=== PATIENT | female | born 1950 | race Caucasian/White ===

== ENCOUNTER 2020-05-28 08:10 | Outpatient (REF) | payer MEDICARE, SELFPAY ==
[2020-05-28 10:22] LABS: Basophils Percent Auto 0.8 % (0-2); Eosinophils Absolute Auto 0.2 X10*3/uL (0.0-0.4); Hematocrit 38.5 % (37-47); Hemoglobin 12.6 g/dl (12.0-16.0); Imm Gran Abs Auto 0.02 X10*3/uL (0.00-0.03); Imm Gran Pct Auto 0.5 % (0.0-0.4); Lymphocytes Absolute Auto 0.7 X10*3/uL (1.2-4.9); Lymphocytes Percent Auto 18.1 % (20-40); MANUAL DIFF FLAG SCAN; Mean Corpuscular HGB Conc 32.7 g/dl (31.0-35.0); Mean Corpuscular Hemoglobin 31.3 pg (27.0-33.0); Mean Corpuscular Volume 95.5 fL (80-98); Mean Platelet Volume 10.2 fL (9.4-12.3); Monocytes Absolute Auto 0.3 X10*3/uL (0.1-1.2); Monocytes Percent Auto 7.6 % (2-11); Neutrophils Absolute Auto 2.6 X10*3/uL (2.0-8.3); Platelet Count 211 X10*3/uL (160-400); Red Blood Count 4.03 X10*6/uL (4.20-5.50); Red Cell Distribution Width 13.1 % (11.0-16.0); SCAN SMEAR FLAG 1; White Blood Count 3.8 X10*3/uL (4.8-10.8)
[2020-05-28 10:48] LABS: Estimated Average Glucose 105 mg/dL; Hemoglobin A1c % 5.3 %
[2020-05-28 10:50] LABS: Alanine Aminotransferase 15 U/L (0-31); Albumin Level 4.2 g/dL (3.5-5.0); Alkaline Phosphatase 99 U/L (39-117); Anion Gap 13 (12-20); Aspartate Amino Transferase 20 U/L (5-31); Bilirubin Total 0.6 mg/dL (0.0-1.0); Blood Urea Nitrogen 24 mg/dL (9-16); Calcium 8.8 mg/dL (8.4-10.2); Carbon Dioxide 27 mmol/L (22-29); Chloride 105 mmol/L (96-108); Cholesterol 235 mg/dL; Estimated Glomerular Filt Rate 57; Glucose Fasting 86 mg/dL (60-99); HDL Cholesterol 75 mg/dL; LDL Cholesterol Calculated 146 mg/dl; Potassium 4.3 mmol/l (3.3-5.1); Sodium 141 mmol/L (135-145); Total Protein 7.3 g/dL (6.5-8.0); Triglycerides 73 mg/dL
[2020-05-28 10:58] LABS: SLIDE REVIEW VERIFIED
[2020-05-28 11:11] LABS: TSH reflex Free T4 5.05 mIU/mL (0.32-4.0)
[2020-05-28 12:21] LABS: Free T4 (Free Thyroxine) 0.84 ng/dL (0.71-1.85)
== END 2020-05-28 08:11 | disposition home or self-care (01) ==
LOC: HO.10HDL 08:10
PROVIDERS: Visit Provider Physician Assistant
DX: E03.9 Hypothyroidism, unspecified (principal)
CPT/HCPCS: 36415; 80053; 80061; 83036; 84439; 84443; 85025

== ENCOUNTER 2020-07-15 07:55 | Outpatient (REF) | payer MEDICARE, SELFPAY ==
[2020-07-15 11:10] LABS: TSH reflex Free T4 4.26 uIU/mL (0.32-4.0)
[2020-07-15 12:13] LABS: Free T4 (Free Thyroxine) 1.04 ng/dL (0.71-1.85)
== END 2020-07-15 07:56 | disposition home or self-care (01) ==
LOC: HO.10HDL 07:55
PROVIDERS: Visit Provider Physician Assistant
DX: E03.9 Hypothyroidism, unspecified (principal)
CPT/HCPCS: 36415; 84439; 84443

== ENCOUNTER 2021-01-10 07:57 | Outpatient (REF) | payer MEDICARE, SELFPAY ==
[2021-01-10 09:34] LABS: Alanine Aminotransferase 15 U/L (0-31); Albumin Level 4.4 g/dL (3.5-5.0); Alkaline Phosphatase 95 U/L (39-117); Anion Gap 14 (12-20); Aspartate Amino Transferase 19 U/L (5-31); Bilirubin Total 0.7 mg/dL (0.0-1.0); Blood Urea Nitrogen 16 mg/dL (9-16); Calcium 9.3 mg/dL (8.4-10.2); Carbon Dioxide 26 mmol/L (22-29); Chloride 105 mmol/L (96-108); Cholesterol 260 mg/dL; Estimated Glomerular Filt Rate 52; Glucose Fasting 87 mg/dL (60-99); HDL Cholesterol 69 mg/dL; LDL Cholesterol Calculated 169 mg/dl; Potassium 4.6 mmol/L (3.3-5.1); Sodium 140 mmol/L (135-145); Total Protein 7.4 g/dL (6.5-8.0); Triglycerides 114 mg/dL
[2021-01-10 09:57] LABS: TSH reflex Free T4 11.16 uIU/mL (0.32-4.0)
[2021-01-10 10:38] LABS: Free T4 (Free Thyroxine) 0.89 ng/dL (0.71-1.85)
== END 2021-01-10 07:58 | disposition home or self-care (01) ==
LOC: HO.LAB 07:57
PROVIDERS: PCP Physician Assistant; Visit Provider Physician Assistant
DX: E03.9 Hypothyroidism, unspecified (principal); E78.9 Disorder of lipoprotein metabolism, unspecified
CPT/HCPCS: 36415; 80053; 80061; 84439; 84443

== ENCOUNTER 2021-03-01 11:01 | Outpatient (REF) | payer MEDICARE, SELFPAY ==
[2021-03-01 14:48] LABS: TSH reflex Free T4 5.07 uIU/mL (0.32-4.0)
[2021-03-01 15:28] LABS: Free T4 (Free Thyroxine) 0.92 ng/dL (0.71-1.85)
== END 2021-03-01 11:02 | disposition home or self-care (01) ==
LOC: HO.10HDL 11:01
PROVIDERS: Visit Provider Physician Assistant
DX: E03.9 Hypothyroidism, unspecified (principal)
CPT/HCPCS: 36415; 84439; 84443

== ENCOUNTER 2021-04-19 09:02 | Outpatient (REF) | payer MEDICARE, SELFPAY ==
[2021-04-19 11:48] LABS: Free T4 (Free Thyroxine) 0.91 ng/dL (0.71-1.85)
== END 2021-04-19 09:03 | disposition home or self-care (01) ==
LOC: HO.10HDL 09:02
PROVIDERS: Visit Provider Physician Assistant
DX: E03.9 Hypothyroidism, unspecified (principal)
CPT/HCPCS: 36415; 84439; 84443

== ENCOUNTER 2021-06-07 11:13 | Outpatient (REF) | payer MEDICARE, SELFPAY ==
[2021-06-07 15:28] LABS: TSH reflex Free T4 8.43 uIU/mL (0.32-4.0)
[2021-06-07 16:11] LABS: Free T4 (Free Thyroxine) 0.95 ng/dL (0.71-1.85)
== END 2021-06-07 11:14 | disposition home or self-care (01) ==
LOC: HO.10HDL 11:13
PROVIDERS: Visit Provider Physician Assistant
DX: E03.9 Hypothyroidism, unspecified (principal)
CPT/HCPCS: 36415; 84439; 84443

== ENCOUNTER 2021-08-04 07:54 | Outpatient (REF) | payer MEDICARE, SELFPAY ==
[2021-08-04 11:43] LABS: TSH reflex Free T4 13.35 uIU/mL (0.32-4.0)
[2021-08-04 12:22] LABS: Free T4 (Free Thyroxine) 0.92 ng/dL (0.71-1.85)
== END 2021-08-04 07:55 | disposition home or self-care (01) ==
LOC: HO.10HDL 07:54
PROVIDERS: Visit Provider Physician Assistant
DX: E03.9 Hypothyroidism, unspecified (principal)
CPT/HCPCS: 36415; 84439; 84443

== ENCOUNTER 2021-09-05 08:21 | Outpatient (REF) | payer MEDICARE, SELFPAY ==
[2021-09-05 11:42] LABS: TSH reflex Free T4 3.92 uIU/mL (0.32-4.0)
== END 2021-09-05 08:22 | disposition home or self-care (01) ==
LOC: HO.10HDL 08:21
PROVIDERS: Visit Provider Physician Assistant
DX: E03.9 Hypothyroidism, unspecified (principal)
CPT/HCPCS: 36415; 84443

== ENCOUNTER 2022-04-14 08:21 | Outpatient (REF) | payer MEDICARE, SELFPAY ==
[2022-04-14 10:43] LABS: Hematocrit 39.6 % (37.0-47.0); Mean Corpuscular HGB Conc 32.8 g/dl (31.0-35.0); Mean Corpuscular Hemoglobin 31.6 pg (27.0-33.0); Mean Corpuscular Volume 96.4 fL (80.0-98.0); Mean Platelet Volume 9.9 fL (9.4-12.3); Platelet Count 208 X10*3/uL (160-400); Red Blood Count 4.11 X10*6/uL (4.20-5.50); Red Cell Distribution Width 12.4 % (11.0-16.0); White Blood Count 4.3 X10*3/uL (4.8-10.8)
[2022-04-14 10:53] LABS: Alanine Aminotransferase 14 U/L (0-31); Albumin Level 4.3 g/dL (3.5-5.0); Alkaline Phosphatase 79 U/L (39-117); Anion Gap 16 (12-20); Aspartate Amino Transferase 17 U/L (5-31); Bilirubin Total 0.7 mg/dL (0.0-1.0); Blood Urea Nitrogen 16 mg/dL (9-16); Carbon Dioxide 26 mmol/L (22-29); Chloride 103 mmol/L (96-108); Cholesterol 256 mg/dL; Estimated Glomerular Filt Rate 59; Glucose Fasting 88 mg/dL (60-99); HDL Cholesterol 70 mg/dL; LDL Cholesterol Calculated 171 mg/dl; Potassium 4.6 mmol/L (3.3-5.1); Sodium 140 mmol/L (135-145); Total Protein 7.3 g/dL (6.5-8.0); Triglycerides 76 mg/dL
[2022-04-14 11:50] LABS: Free T4 (Free Thyroxine) 1.24 ng/dL (0.71-1.85)
== END 2022-04-14 08:22 | disposition home or self-care (01) ==
LOC: HO.10HDL 08:21
PROVIDERS: Visit Provider Physician Assistant
DX: E03.9 Hypothyroidism, unspecified (principal); E78.9 Disorder of lipoprotein metabolism, unspecified
CPT/HCPCS: 36415; 80053; 80061; 84439; 84443; 85027

== ENCOUNTER 2022-06-27 12:36 | Outpatient (REF) | payer MEDICARE, SELFPAY ==
[2022-06-27 15:30] LABS: TSH reflex Free T4 1.08 uIU/mL (0.32-4.0)
== END 2022-06-27 12:37 | disposition home or self-care (01) ==
LOC: HO.10HDL 12:36
PROVIDERS: Visit Provider Physician Assistant
DX: E03.9 Hypothyroidism, unspecified (principal)
CPT/HCPCS: 36415; 84443

== ENCOUNTER 2022-11-07 09:34 | Outpatient (REF) | payer MEDICARE, SELFPAY ==
[2022-11-07 10:51] LABS: Hematocrit 40.6 % (37.0-47.0); Hemoglobin 13.2 g/dl (12.0-16.0); Mean Corpuscular HGB Conc 32.5 g/dl (31.0-35.0); Mean Corpuscular Hemoglobin 30.8 pg (27.0-33.0); Mean Corpuscular Volume 94.9 fL (80.0-98.0); Mean Platelet Volume 9.8 fL (9.4-12.3); Platelet Count 186 X10*3/uL (160-400); Red Blood Count 4.28 X10*6/uL (4.20-5.50); Red Cell Distribution Width 12.6 % (11.0-16.0); White Blood Count 4.6 X10*3/uL (4.8-10.8)
[2022-11-07 11:05] LABS: Alanine Aminotransferase 14 U/L (0-31); Albumin Level 4.1 g/dL (3.5-5.0); Alkaline Phosphatase 83 U/L (39-117); Anion Gap 11 (12-20); Aspartate Amino Transferase 15 U/L (5-31); Bilirubin Total 0.6 mg/dL (0.0-1.0); Blood Urea Nitrogen 19 mg/dL (9-16); Calcium 9.4 mg/dL (8.4-10.2); Carbon Dioxide 30 mmol/L (22-29); Chloride 105 mmol/L (96-108); Cholesterol 245 mg/dL; Estimated Glomerular Filt Rate > 60; Glucose Fasting 85 mg/dL (60-99); HDL Cholesterol 68 mg/dL; LDL Cholesterol Calculated 159 mg/dl; Potassium 4.5 mmol/L (3.3-5.1); Sodium 141 mmol/L (135-145); Total Protein 7.1 g/dL (6.5-8.0); Triglycerides 91 mg/dL
[2022-11-07 11:21] LABS: TSH reflex Free T4 0.55 uIU/mL (0.32-4.0); Vitamin D 25-OH Total 33.5 ng/mL (>30)
== END 2022-11-07 09:35 | disposition home or self-care (01) ==
LOC: HO.10HDL 09:34
PROVIDERS: Visit Provider Physician Assistant
DX: E03.9 Hypothyroidism, unspecified (principal); E55.9 Vitamin D deficiency, unspecified
CPT/HCPCS: 36415; 80053; 80061; 82306; 84443; 85027

== ENCOUNTER 2023-06-13 15:02 | Outpatient (AMB) | payer MEDICARE, SELFPAY ==
[2023-06-13 15:05] VITALS: BP 140/76; PULSE 80; RESP 16; O2SAT 95; BMI 33.3
--- NOTE | 2023-06-13 15:05 | MHC.PC.OV ---
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 Accompanied by: Self / Same As Patient Allergies latex Allergy (Unknown, Verified 06/13/23 15:40) unknown penicillin V Allergy (Unknown, Verified 06/13/23 15:40) Unknown Medication List - Last Reconciled 06/13/23 by Flavio Ruiz PA-C apixaban (Eliquis) 5 mg PO Q12H 30 days cholecalciferol (vitamin D3) 25 mcg PO DAILY levothyroxine 150 mcg PO DAILY multivitamin 1 tab PO DAILY Tobacco use date assessed: 06/13/23 Fall risk assessment: No Falls in past year Last assessed Fall Risk: 06/13/23 Dental Screening Dental Screen Date: 06/13/23 Did you have a dental visit in the last 12 months?: Yes Did you have a dental problem in the last 6 months where you did not have access to dental care?: No Was dental information given to patient?: Patient has dentist HPI f/u hypothyroid HPI Details Patient is a 73-year-old female here today for follow-up visit. Patient has a past medical history significant for hypothyroidism, DVT. Her Synthroid has been increased to 125mcg.? She reports feeling well.? Most recent TSH stable, has lost weight since last office visit.? Also has had elevated cholesterol in the setting of elevated TSH.? Advised to get her fasting lipids done to assure normal. .. History endometrial malignancy: ? Has had total? hysterectomy 2018 with chemo radiation.? Also had lymph node resection in the pelvis leading to bilateral lower extremity lymphedema. 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 Unfortunately her last year and she stopped attending medical appointments. Has been somewhat melancholy. We have noted weight gain since last office visit. She does report having more swelling in her legs into the upper thighs.. She has done lymphedema massage in wrappings in the past that were helpful and is considering doing this again. She does report she is concerned about being able to manage her activities of daily living if she is being wrapped for an lymphedema. Laboratory Tests 04/14/22 11/07/22 08:40 09:37 RBC 4.28 TSH 8.00 H 0.55 PFSH Surgical History History of surgery History of drainage of abscess History of removal of Port-a-Cath History of cardioversion History of thyroid nodule History of laparoscopy-assisted vaginal hysterectomy History of D&C Family History Father Heart failure Prostate cancer Mother Lung cancer Sister Lung cancer Sister Brain tumor Brother Pancreatic cancer Social History Housing: Apartment Alcohol intake: never Patient Tobacco Use Status: Never used Tobacco e-Cigarette/Vaping Use: Never Used Second Hand Smoke Exposure: No service: No Current occupational status: retired Cognitive needs: No Hearing needs: No Vision needs: Yes (glasses for driving ) Questionnaire PHQ-9 Over the last 2 weeks, how often have you been bothered by any of the following problems? 1. Little interest or pleasure in doing things: not at all 2. Feeling down, depressed, or hopeless: not at all 3. Trouble falling or staying asleep, or sleeping too much: not at all 4. Feeling tired or having little energy: not at all 5. Poor appetite or overeating: not at all 6. Feeling bad about yourself - or that you are a failure or have let yourself or your family down: not at all 7. Trouble concentrating on things, such as reading the newspaper or watching television: not at all 8. Moving or speaking so slowly that other people could have noticed. Or the opposite - being so fidgety or restless that you have been moving around a lot more than usual: not at all 9. Thoughts that you would be better off or of hurting yourself in some way: not at all Total score: 0 Depression Screening Interpretation: Negative Depression Screening Done: Yes 32491 - PHQ-9 Billing: Yes Source: Developed by Drs. Gualberto Pascual, Emerita Wu, Bob Forte and colleagues, with an educational tevin from [employer] Thrive Questionnaire Date Thrive assessed: 06/13/23 I am a: Patient What is your living situation today?: I have a steady place to live Within the past 12 months, did the food you bought not last and you didn't have the money to get more?: Never true Within the past 12 months, did you worry whether your food would run out before you got money to buy more?: Never true Do you have trouble paying for medicines?: No Do you have trouble getting transportation to medical appointments?: No Do you have trouble paying your heating and electricity bill?: No Do you have trouble taking care of your child, family member or friend?: No Do you have trouble with day-to-day activities such as bathing, preparing meals, shopping, managing finances, etc.?: No Are you currently unemployed and looking for a job?: No Are you interested in more education?: No Please select the resources that you would like help with: None Currently or been in a relationship where the following occur: no concerns reported AUDIT C Alcohol Use Questionnaire (AUDIT-C) 1. How often do you have a drink containing alcohol?: Never Total Score: 0 DAVID-7 AMB Questionnaire DAVID-7 Date DAVID - 7 assessed: 06/13/23 Feeling nervous, anxious, or on edge: 0 = Not at all Not being able to stop or control worryin = Not at all Worrying too much about different things: 0 = Not at all Trouble relaxin = Not at all Being so restless that it is hard to sit still: 0 = Not at all Becoming easily annoyed or irritable: 0 = Not at all Feeling afraid as if something awful might happen: 0 = Not at all Total DAVID-7 score (0-4 normal; 5-9 mild; 10-14 moderate; 15-21 severe): 0 Source: Developed by Drs. Gualberto Pascual, Emerita Wu, Bob Forte and colleagues, with an educational tevin from [employer] DAVID-7 Assessment Billing DAVID-7 Assessment Tool: DAVID-7 Assessment 09645 Review of Systems Const Denies headache(s) Eyes Denies loss of vision ENT Denies vertigo, Denies dizziness, Denies headache(s) and Denies sore throat Card Denies chest pain, Denies leg edema and Denies lightheadedness Resp Denies cough, Denies hemoptysis and Denies wheezing GI Denies abdominal pain, Denies melena, Denies constipation, Denies diarrhea and Denies vomiting Denies urinary frequency, Denies dysuria and Denies urinary urgency Musc Denies arthralgias, Denies joint swelling, Denies numbness and Denies tingling Neuro Denies Abnormal speech present, Denies behavioral changes, Denies vertigo, Denies dizziness, Denies headache(s), Denies loss of vision, Denies memory loss, Denies numbness and Denies tingling Psych Denies anxiety, Denies behavioral changes, Denies depression, Denies memory loss and Denies panic attacks Neo/Lymph Denies easy bleeding and Denies easy bruising Aller/Immun Denies wheezing Physical exam (Primary Care) Vital Signs: Last Vital Signs Pulse 80 06/13/23 15:05 Resp 16 06/13/23 15:05 BP 140/76 H 06/13/23 15:05 Pulse Ox 95 06/13/23 15:05 Oxygen Delivery Method Room Air 06/13/23 15:05 BMI result Body Mass Index 33.3 Tobacco/Smoking Status: Tobacco use Status Tobacco use date assessed 06/13/23 06/13/23 15:08 Patient Tobacco Use Status Never used Tobacco 06/13/23 15:06 e-Cigarette/Vaping Use Never Used 06/13/23 15:06 PHQ-9: PHQ-9 Score PHQ-9: Total score 0 06/13/23 15:44 Depression Screening Interpretation: Negative Thrive Assessment: Date of Thrive Assessment Date Thrive assessed 06/13/23 06/13/23 15:08 Currently or been in a relationship where the following occur: no concerns reported Const General: healthy appearing, no acute distress, alert and awake Nutritional Appearance: well nourished Orientation/consciousness: oriented to person, oriented to place and oriented to time HENMT Ears: TM's normal bilaterally General nose exam: Normal nasal mucous membranes and turbinates present Eyes Conjunctivae: conjunctivae normal Sclerae: sclerae normal Pupils: Equal, round and reactive pupils present Neck Neck: Yes no lymphadenopathy and Yes no JVD Thyroid: Thyroid normal Carotids: no bruits Resp Effort & Inspection: normal respiratory effort and not tachypneic Auscultation: no crackles, no rales, no rhonchi and no wheezes Cardio Rate: regular rate Rhythm: regular rhythm Heart sounds: no murmurs and normal S1 and S2 GI Palpation (GI): Soft to palpation, nontender, no hepatomegaly and no splenomegaly Auscultation: normal bowel sounds Skin General skin exam: no rashes or lesions noted and dry skin Neuro General: oriented to person, oriented to place and oriented to time Cranial nerves: Yes Equal, round and reactive pupils present Speech: No Abnormal speech present Gait exam (Neuro): Normal gait present Motor exam (neuro): no tremor noted Extrem Other: 3+ PITTING EDEMA TO THE LEVEL OF MID THIGH. SKIN WEEPING CLEAR FLUID, FLAKY AND ERYTHEMATOUS. Right upper extremity: full ROM Left upper extremity: full ROM Right lower extremity: full ROM and edema Left lower extremity: full ROM and edema Psych Mental Status: mental status grossly normal Speech and movement: Normal speech and movement present Affect: normal affect Attitude: cooperative Thought process: Normal thought process present Assessment and Plan Assessment & Plan (1) Lymphedema: Code(s): I89.0 - Lymphedema, not elsewhere classified Plan: CONTINUES TO HAVE PRETTY SEVERE BILATERAL LOWER EXTREMITY LYMPHEDEMA. 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 SHE WILL LIKELY BENEFIT FROM LYMPHEDEMA WRAPPINGS AND MASSAGE AND PATIENT DOES AGREE AND UNDERSTAND. SHE WOULD LIKE TO HOLD OFF ON SEEING OCCUPATIONAL THERAPY FOR THE WRAPPINGS FOR NOW SHE HAS BEEN HAVING DIFFICULTIES WITH HOME OWNERSHIP SINCE HER . (2) Cellulitis: Code(s): L03.90 - Cellulitis, unspecified Qualifiers: Laterality: unspecified laterality Site of cellulitis: extremity Site of cellulitis of extremity: lower extremity Qualified Code(s): L03.119 - Cellulitis of unspecified part of limb Plan: LOWER EXTREMITIES DO APPEAR TO BE WE BEING AND ERYTHEMATOUS. WILL SUPPLY PATIENT WITH DOXYCYCLINE FOR THE POSSIBILITY OF CELLULITIS. (3) Hypothyroidism: Code(s): E03.9 - Hypothyroidism, unspecified Qualifiers: Hypothyroidism type: acquired Qualified Code(s): E03.9 - Hypothyroidism, unspecified Plan: Patient's most recent TSH stable, will continue current dose of levothyroxine. (4) DVT (deep venous thrombosis): Code(s): I82.409 - Acute embolism and thrombosis of unspecified deep veins of unspecified lower extremity Qualifiers: Affected thrombotic vein of extremity: popliteal Chronicity: chronic DVT location: lower extremity Laterality: bilateral Qualified Code(s): I82.533 - Chronic embolism and thrombosis of popliteal vein, bilateral Plan: Patient continues on anticoagulation without any overt signs of bleeding. (5) Obese: Code(s): E66.9 - Obesity, unspecified Qualifiers: Body mass index: BMI 31.0-31.9 Obesity classification: adult class 1 (BMI 30 - 34.9) Obesity type: due to excess calories Serious obesity comorbidity presence: without serious comorbidity Qualified Code(s): E66.09 - Other obesity due to excess calories; Z68.31 - Body mass index [BMI] 31.0-31.9, adult Plan: Patient does understand her BMI is over 30 continues to work on being more physically active and adapting to better eating habits to reduce (6) Borderline high cholesterol: Code(s): E78.9 - Disorder of lipoprotein metabolism, unspecified Plan: Patient's most recent lipid panel showing elevated total cholesterol. Will work on lifestyle modifications to reduce her high cholesterol foods in her diet. Goal LDL to be below 160 Orders: Orders Lipid Panel 06/13/23 E78.9 - Disorder of lipoprotein metabolism, unspecified TSH reflex Free T4 06/13/23 E03.9 - Hypothyroidism, unspecified Comprehensive [place]. Panel Fast 06/13/23 Z13.1 - Encounter for screening for diabetes mellitus Medications: New doxycycline monohydrate 100 mg PO BID 10 days 20 caps 0RF L03.119 - Cellulitis of unspecified part of limb Coding Level of Care Code Est Pt Level 4 (08495) Diagnoses Lymphedema I89.0 Cellulitis of lower extremity, unspecified laterality L03.119 Laterality: unspecified laterality Site of cellulitis: extremity Site of cellulitis of extremity: lower extremity Acquired hypothyroidism E03.9 Hypothyroidism type: acquired Chronic deep vein thrombosis (DVT) of popliteal vein of both lower extremities I82.533 Affected thrombotic vein of extremity: popliteal Chronicity: chronic DVT location: lower extremity Laterality: bilateral Class 1 obesity due to excess calories without serious comorbidity with body mass index (BMI) of 31.0 to 31.9 in adult E66.09; Z68.31 Body mass index: BMI 31.0-31.9 Obesity classification: adult class 1 (BMI 30 - 34.9) Obesity type: due to excess calories Serious obesity comorbidity presence: without serious comorbidity Borderline high cholesterol E78.9 Additional Codes DAVID-7 Assessment Billing - DAVID-7 Assessment Tool: DAVID-7 Assessment [id number] ([id number])
== END 2023-06-13 16:10 | disposition home or self-care (01) ==
PROVIDERS: Visit Provider Physician Assistant
DX: I89.0 Lymphedema, not elsewhere classified (principal); L03.119 Cellulitis of unspecified part of limb; E03.9 Hypothyroidism, unspecified; I82.533 Chronic embolism and thrombosis of popliteal vein, bilateral; E66.09 Other obesity due to excess calories; Z68.31 Body mass index [BMI] 31.0-31.9, adult; E78.9 Disorder of lipoprotein metabolism, unspecified
CPT/HCPCS: 99214

== ENCOUNTER 2023-06-14 08:12 | Outpatient (REF) | payer MEDICARE, SELFPAY | END 2023-06-14 08:13 | disposition home or self-care (01) | LOC: HO.10HDL 08:12 | PROVIDERS: Visit Provider Physician Assistant | DX: Z13.1 Encounter for screening for diabetes mellitus (principal); E03.9 Hypothyroidism, unspecified; E78.9 Disorder of lipoprotein metabolism, unspecified | CPT/HCPCS: 36415; 80053; 80061; 84443 ==

== ENCOUNTER 2023-08-07 12:36 | Outpatient (RCR) | payer MEDICARE, SELFPAY | END 2023-09-17 12:07 | disposition home or self-care (01) | LOC: HO.WCC 12:36 | PROVIDERS: PCP Physician Assistant; Visit Provider Physician Assistant | DX: L97.821 Non-pressure chronic ulcer of other part of left lower leg limited to breakdown of skin (principal); I89.0 Lymphedema, not elsewhere classified; G62.9 Polyneuropathy, unspecified; Z86.718 Personal history of other venous thrombosis and embolism; Z87.891 Personal history of nicotine dependence; Z92.21 Personal history of antineoplastic chemotherapy; Z92.3 Personal history of irradiation | CPT/HCPCS: 97597; 99212; 99214 ==

== ENCOUNTER 2023-10-15 10:37 | Outpatient (AMB) | payer MEDICARE, SELFPAY ==
[2023-10-15 10:39] VITALS: BP 142/80; PULSE 74; O2SAT 98; BMI 33.9
--- NOTE | 2023-10-15 10:39 | A.OFFPC_ITS ---
Vital Signs 10/15/23 10:39 Height 5 ft 8 in Weight 223 lb BMI 33.9 BP 142/80 H Blood Pressure Location Lt brachial Position Sitting Pulse 74 Pulse Source Pulse Oximeter Pulse Oximetry (%) 98 Oxygen Delivery Method Room Air Intake Visit Reasons: f/u Lymphedema/ hypothyroid. 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 HPI Details Patient is a 73-year-old female here today for follow-up visit. Patient has a past medical history significant for hypothyroidism, DVT. Hypothyroidism: Her Synthroid has been increased to 125mcg.? She reports feeling well.? Most recent TSH stable. .. History endometrial malignancy/ lymphedema: ? Has had total? hysterectomy 2018 with chemo radiation.? Also had lymph node resection in the pelvis leading to bilateral lower extremity lymphedema. 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 Unfortunately her last year and she stopped attending medical appointments. Has been somewhat melancholy. We have noted weight gain since last office visit. She does report having more swelling in her legs into the upper thighs.. She has done lymphedema massage in wrappings in the past that were helpful and is considering doing this again. She does report she is concerned about being able to manage her activities of daily living if she is being wrapped for an lymphedema. .. Borderline high cholesterol: Most recent lipid panel showing borderline cholesterol. He has not interested in any medication at this time for c holesterol. She will work extensively on lifestyle and dietary modifications to reduce her cholesterol. Laboratory Tests 11/07/22 06/14/23 09:37 08:20 Creatinine 0.89 Cholesterol 245 232 H LDL Cholesterol, C alc 147 H TSH 1.26 PFSH Surgical History History of surgery History of drainage of abscess History of removal of Port-a-Cath History of cardioversion History of thyroid nodule History of laparoscopy-assisted vaginal hysterectomy History of D&C Family History Father Heart failure Prostate cancer Mother Lung cancer Sister Lung cancer Sister Brain tumor Brother Pancreatic cancer Social History Housing: Apartment Alcohol intake: never Patient Tobacco Use Status: Never used Tobacco e-Cigarette/Vaping Use: Never Used Second Hand Smoke Exposure: No service: No Current occupational status: retired Cognitive needs: No Hearing needs: No Vision needs: Yes (glasses for driving ) Questionnaire PHQ-9 Over the last 2 weeks, how often have you been bothered by any of the following problems? Depression Screening Interpretation: Negative Depression Screening Done: Yes Source: Developed by Drs. Gualberto Pascual, Emerita Wu, Bob Forte and colleagues, with an educational tevin from [employer]. Thrive Questionnaire Date Thrive assessed: 06/13/23 Currently or been in a relationship where the following occur: no concerns reported THRIVE Score: 0 DAVID-7 AMB Questionnaire DAVID-7 Date DAVID - 7 assessed: 06/13/23 Source: Developed by Drs. Gualberto Pascual, Emerita Wu, Bob Forte and colleagues, with an educational tevin from [employer]. Review of Systems Const Denies headache(s) Eyes Denies loss of vision ENT Denies vertigo, Denies dizziness, Denies headache(s) and Denies sore throat Card Denies chest pain, Denies leg edema and Denies lightheadedness Resp Denies cough, Denies hemoptysis and Denies wheezing GI Denies abdominal pain, Denies melena, Denies constipation, Denies diarrhea and Denies vomiting Denies urinary frequency, Denies dysuria and Denies urinary urgency Musc Denies arthralgias, Denies joint swelling, Denies numbness and Denies tingling Neuro Denies Abnormal speech present, Denies behavioral changes, Denies vertigo, Denies dizziness, Denies headache(s), Denies loss of vision, Denies memory loss, Denies numbness and Denies tingling Psych Denies anxiety, Denies behavioral changes, Denies depression, Denies memory loss and Denies panic attacks Neo/Lymph Denies easy bleeding and Denies easy bruising Aller/Immun Denies wheezing Physical exam (Primary Care) Vital Signs: Last Vital Signs Pulse 74 10/15/23 10:39 BP 142/80 H 10/15/23 10:39 Pulse Ox 98 10/15/23 10:39 Oxygen Delivery Method Room Air 10/15/23 10:39 BMI result Body Mass Index 33.9 Tobacco/Smoking Status: Tobacco use Status Tobacco use date assessed 06/13/23 10/15/23 10:44 Patient Tobacco Use Status Never used Tobacco 10/15/23 10:44 e-Cigarette/Vaping Use Never Used 10/15/23 10:44 Depression Screening Interpretation: Negative Thrive Assessment: Date of Thrive Assessment Date Thrive assessed 06/13/23 10/15/23 10:44 Currently or been in a relationship where the following occur: no concerns reported Const General: healthy appearing, no acute distress, alert and awake Nutritional Appearance: well nourished Orientation/consciousness: oriented to person, oriented to place and oriented to time HENMT Ears: TM's normal bilaterally General nose exam: Normal nasal mucous membranes and turbinates present Eyes Conjunctivae: conjunctivae normal Sclerae: sclerae normal Pupils: Equal, round and reactive pupils present Neck Neck: Yes no lymphadenopathy and Yes no JVD Thyroid: Thyroid normal Carotids: no bruits Resp Effort & Inspection: normal respiratory effort and not tachypneic Auscultation: no crackles, no rales, no rhonchi and no wheezes Cardio Rate: regular rate Rhythm: regular rhythm Heart sounds: no murmurs and normal S1 and S2 GI Palpation (GI): Soft to palpation, nontender, no hepatomegaly and no splenomegaly Auscultation: normal bowel sounds Skin General skin exam: no rashes or lesions noted and dry skin Neuro General: oriented to person, oriented to place and oriented to time Cranial nerves: Yes Equal, round and reactive pupils present Speech: No Abnormal speech present Gait exam (Neuro): Normal gait present Motor exam (neuro): no tremor noted Extrem Other: 3+ PITTING EDEMA TO THE LEVEL OF MID THIGH. SKIN WEEPING CLEAR FLUID, FLAKY AND ERYTHEMATOUS. Right upper extremity: full ROM Left upper extremity: full ROM Right lower extremity: full ROM and edema Left lower extremity: full ROM and edema Psych Mental Status: mental status grossly normal Speech and movement: Normal speech and movement present Affect: normal affect Attitude: cooperative Thought process: Normal thought process present Assessment and Plan Assessment & Plan (1) Lymphedema: Code(s): I89.0 - Lymphedema, not elsewhere classified Plan: CONTINUES TO HAVE PRETTY SEVERE BILATERAL LOWER EXTREMITY LYMPHEDEMA. 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 HAS BEEN DOING LYMPHEDEMA WRAPPINGS WHICH HAVE BEEN SOMEWHAT EFFECTIVE. DIURETICS HAVE NOT BEEN EFFECTIVE. (2) Hypothyroidism: Code(s): E03.9 - Hypothyroidism, unspecified Qualifiers: Hypothyroidism type: acquired Qualified Code(s): E03.9 - Hypothyroidism, unspecified Plan: Patient's most recent TSH stable, will continue current dose of levothyroxine. (3) DVT (deep venous thrombosis): Code(s): I82.409 - Acute embolism and thrombosis of unspecified deep veins of unspecified lower extremity Qualifiers: Affected thrombotic vein of extremity: popliteal Chronicity: chronic DVT location: lower extremity Laterality: bilateral Qualified Code(s): I82.533 - Chronic embolism and thrombosis of popliteal vein, bilateral Plan: Patient continues on anticoagulation without any overt signs of bleeding. (4) Borderline high cholesterol: Code(s): E78.9 - Disorder of lipoprotein metabolism, unspecified Plan: Patient's most recent lipid panel showing elevated total cholesterol. Will work on lifestyle modifications to reduce her high cholesterol foods in her diet. Goal LDL to be below 160 (5) Venous ulcer of ankle: Code(s): I83.003 - Varicose veins of unspecified lower extremity with ulcer of ankle; L97.309 - Non-pressure chronic ulcer of unspecified ankle with unspecified severity Qualifiers: Varicose vein presence: without varicose veins Laterality: left Non- pressure ulcer stage: limited to breakdown of skin Qualified Code(s): I87.2 - Venous insufficiency (chronic) (peripheral); L97.321 - Non-pressure chronic ulcer of left ankle limited to breakdown of skin Plan: Has seen wound management received treatment, Has resolved Orders: Orders TSH reflex Free T4 Today E03.9 - Hypothyroidism, unspecified Comprehensive [place]. Panel Fast Today E78.9 - Disorder of lipoprotein metabolism, unspecified Lipid Panel Today E78.9 - Disorder of lipoprotein metabolism, unspecified Patient Instructions: Goal: LDL below 160 Barriers: Adherence to physical activity and healthy eating habits Coding Level of Care Code Est Pt Level 4 (09372) Diagnoses Lymphedema I89.0 Acquired hypothyroidism E03.9 Hypothyroidism type: acquired Chronic deep vein thrombosis (DVT) of popliteal vein of both lower extremities I82.533 Affected thrombotic vein of extremity: popliteal Chronicity: chronic DVT location: lower extremity Laterality: bilateral Borderline high cholesterol E78.9 Venous stasis ulcer of left ankle limited to breakdown of skin without varicose veins I87.2; L97.321 Varicose vein presence: without varicose veins Laterality: left Non-pressure ulcer stage: limited to breakdown of skin
== END 2023-10-15 11:16 | disposition home or self-care (01) ==
PROVIDERS: PCP Physician Assistant; Visit Provider Physician Assistant
DX: I89.0 Lymphedema, not elsewhere classified (principal); I82.533 Chronic embolism and thrombosis of popliteal vein, bilateral; L97.321 Non-pressure chronic ulcer of left ankle limited to breakdown of skin; E03.9 Hypothyroidism, unspecified; E78.9 Disorder of lipoprotein metabolism, unspecified; I87.2 Venous insufficiency (chronic) (peripheral)
CPT/HCPCS: 99214

== ENCOUNTER 2024-01-16 15:41 | Outpatient (REF) | payer MEDICARE, SELFPAY ==
[2024-01-16 16:45] LABS: Alanine Aminotransferase 20 U/L (0-31); Albumin Level 4.3 g/dL (3.5-5.0); Alkaline Phosphatase 80 U/L (39-117); Anion Gap 12 (12-20); Aspartate Amino Transferase 17 U/L (5-31); Bilirubin Total 0.4 mg/dL (0.0-1.0); Blood Urea Nitrogen 16 mg/dL (9-16); Calcium 9.8 mg/dL (8.4-10.2); Carbon Dioxide 27 mmol/L (22-29); Chloride 103 mmol/L (96-108); Cholesterol 241 mg/dL (<200); Estimated Glomerular Filt Rate > 60; Glucose Fasting 92 mg/dL (60-99); HDL Cholesterol 63 mg/dL (>40); LDL Cholesterol Calculated 149 mg/dL (<100); Potassium 4.4 mmol/L (3.3-5.1); Sodium 138 mmol/L (135-145); Total Protein 7.7 g/dL (6.5-8.0); Triglycerides 146 mg/dL (<150)
[2024-01-16 17:12] LABS: Appearance Urine Cloudy; Color Urine Yellow; Glucose Urine UA Negative (Negative); Leukocyte Esterase Urine Large (3+) (Negative); Nitrite Urine Negative (Negative); PH 5.5 (5.0-9.0); UMIC TRIGGER UACC YES; Urine Blood Negative (Negative); Urine Ketones Negative (Negative); Urine Protein Negative (Neg-Trace)
[2024-01-16 17:15] LABS: Bacteria Urine 4+ (None Seen); Hyaline Casts Urine 0-2 /LPF (0-2); RBC Urine 0-2 /HPF (0-2); UACC Culture Trigger YES; WBC Urine >50 /HPF (0-5)
== END 2024-01-16 15:42 | disposition home or self-care (01) ==
LOC: HO.LAB 15:41
PROVIDERS: PCP Physician Assistant; Visit Provider Physician Assistant
DX: E03.9 Hypothyroidism, unspecified (principal); E78.9 Disorder of lipoprotein metabolism, unspecified; R35.0 Frequency of micturition
CPT/HCPCS: 36415; 80053; 80061; 81001; 84443; 87086; 87088; 87186

== ENCOUNTER 2024-02-18 09:47 | Outpatient (AMB) | payer MEDICARE, SELFPAY ==
[2024-02-18 09:58] VITALS: BP 120/72; PULSE 6; RESP 15; O2SAT 98; BMI 34.2
--- NOTE | 2024-02-18 09:58 | A.OFFPC_ITS ---
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 Required: No Accompanied by: Self / Same As Patient Allergies latex Allergy (Unknown, Verified 02/18/24 10:22) unknown penicillin V Allergy (Unknown, Verified 02/18/24 10:22) Unknown Medication List - Last Reconciled 02/18/24 by Flavio Ruiz PA-C apixaban (Eliquis) 5 mg PO Q12H 30 days cholecalciferol (vitamin D3) 25 mcg PO DAILY levothyroxine 150 mcg PO DAILY multivitamin 1 tab PO DAILY nitrofurantoin monohyd/m-cryst 100 mg (Macrobid) 100 mg PO Q12H 5 days Tobacco use date assessed: 06/13/23 Dental Screening Dental Screen Date: 06/13/23 HPI f/u Hypothyroid/ HLD HPI Details Patient is a 73-year-old female here today for follow-up visit. Patient has a past medical history significant for hypothyroidism, DVT. Hypothyroidism: Her Synthroid has been increased to 150mcg.? She reports feeling well.? Most recent TSH stable. .. History endometrial malignancy/ lymphedema: ? Has had total? hysterectomy 2018 with chemo radiation.? Also had lymph node resection in the pelvis leading to bilateral lower extremity lymphedema. 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 Unfortunately her last year and she stopped attending medical appointments. Has been somewhat melancholy. We have noted weight gain since last office visit. She does report having more swelling in her legs into the upper thighs.. She has done lymphedema massage in wrappings in the past that were helpful and is considering doing this again. She does report she is concerned about being able to manage her activities of daily living if she is being wrapped for an lymphedema. .. Borderline high cholesterol: Most recent lipid panel showing elevated cholesterol. He has not interested in any medication at this time for cholesterol. She will work extensively on lifestyle and dietary modifications to reduce her cholesterol. Laboratory Tests 06/14/23 01/16/24 08:20 15:59 Fasting Glucose 92 Cholesterol 232 H 241 H TSH 1.26 0.70 PFSH Surgical History History of surgery History of drainage of abscess History of removal of Port-a-Cath History of cardioversion History of thyroid nodule History of laparoscopy-assisted vaginal hysterectomy History of D&C Family History Father Heart failure Prostate cancer Mother Lung cancer Sister Lung cancer Sister Brain tumor Brother Pancreatic cancer Social History Housing: Apartment Alcohol intake: never Patient Tobacco Use Status: Never used Tobacco e-Cigarette/Vaping Use: Never Used Second Hand Smoke Exposure: No service: No Current occupational status: retired Cognitive needs: No Hearing needs: No Vision needs: Yes (glasses for driving ) Questionnaire Thrive Questionnaire Date Thrive assessed: 06/13/23 DAVID-7 AMB Questionnaire DAVID-7 Date DAVID - 7 assessed: 06/13/23 Source: Developed by Drs. Gualberto Pascual, Emerita Wu, Bob Forte and colleagues, with an educational tevin from [employer]. Review of Systems Const Denies headache(s) Eyes Denies loss of vision ENT Denies vertigo, Denies dizziness, Denies headache(s) and Denies sore throat Card Denies chest pain, Denies leg edema and Denies lightheadedness Resp Denies cough, Denies hemoptysis and Denies wheezing GI Denies abdominal pain, Denies melena, Denies constipation, Denies diarrhea and Denies vomiting Denies urinary frequency, Denies dysuria and Denies urinary urgency Musc Denies arthralgias, Denies joint swelling, Denies numbness and Denies tingling Neuro Denies Abnormal speech present, Denies behavioral changes, Denies vertigo, Denies dizziness, Denies headache(s), Denies loss of vision, Denies memory loss, Denies numbness and Denies tingling Psych Denies anxiety, Denies behavioral changes, Denies depression, Denies memory loss and Denies panic attacks Neo/Lymph Denies easy bleeding and Denies easy bruising Aller/Immun Denies wheezing Physical exam (Primary Care) Vital Signs: Last Vital Signs Pulse 6 L 02/18/24 09:58 Resp 15 02/18/24 09:58 BP 120/72 02/18/24 09:58 Pulse Ox 98 02/18/24 09:58 Oxygen Delivery Method Room Air 02/18/24 09:58 BMI result Body Mass Index 34.2 Tobacco/Smoking Status: Tobacco use Status Tobacco use date assessed 06/13/23 02/18/24 09:58 Patient Tobacco Use Status Never used Tobacco 02/18/24 09:58 e-Cigarette/Vaping Use Never Used 02/18/24 09:58 Thrive Assessment: Date of Thrive Assessment Date Thrive assessed 06/13/23 02/18/24 09:58 Const General: healthy appearing, no acute distress, alert and awake Nutritional Appearance: well nourished Orientation/consciousness: oriented to person, oriented to place and oriented to time HENMT Ears: TM's normal bilaterally General nose exam: Normal nasal mucous membranes and turbinates present Eyes Conjunctivae: conjunctivae normal Sclerae: sclerae normal Pupils: Equal, round and reactive pupils present Neck Neck: Yes no lymphadenopathy and Yes no JVD Thyroid: Thyroid normal Carotids: no bruits Resp Effort & Inspection: normal respiratory effort and not tachypneic Auscultation: no crackles, no rales, no rhonchi and no wheezes Cardio Rate: regular rate Rhythm: regular rhythm Heart sounds: no murmurs and normal S1 and S2 GI Palpation (GI): Soft to palpation, nontender, no hepatomegaly and no splenomegaly Auscultation: normal bowel sounds Skin General skin exam: no rashes or lesions noted and dry skin Neuro General: oriented to person, oriented to place and oriented to time Cranial nerves: Yes Equal, round and reactive pupils present Speech: No Abnormal speech present Gait exam (Neuro): Normal gait present Motor exam (neuro): no tremor noted Extrem Other: SIGNIFICANT BILATERAL LOWER EXTREMITY LYMPHEDEMA WITH HYPERPIGMENTED SKIN CHANGES NOTED. SMALL OPEN AREA LEFT LOWER EXTREMITY. NO NOTABLE SURROUND CELLULITIS Right upper extremity: full ROM Left upper extremity: full ROM Right lower extremity: full ROM and edema Left lower extremity: full ROM and edema Psych Mental Status: mental status grossly normal Speech and movement: Normal speech and movement present Affect: normal affect Attitude: cooperative Thought process: Normal thought process present Assessment and Plan Assessment & Plan (1) Hypothyroidism: Code(s): E03.9 - Hypothyroidism, unspecified Qualifiers: Hypothyroidism type: acquired Qualified Code(s): E03.9 - Hypoth yroidism, unspecified Plan: Patient's most recent TSH stable, will continue current dose of levothyroxine. (2) Lymphedema: Code(s): I89.0 - Lymphedema, not elsewhere classified Plan: CONTINUES TO HAVE PRETTY SEVERE BILATERAL LOWER EXTREMITY LYMPHEDEMA. THIS WAS SECONDARY TO RESIDENT SERVICES DIRECTOR SURGERY SECONDARY TO RESIDENT SERVICES DIRECTOR CANCER. HAS BEEN DOING LYMPHEDEMA WRAPPINGS WHICH HAVE BEEN SOMEWHAT EFFECTIVE. DIURETICS HAVE NOT BEEN EFFECTIVE. (3) HLD (hyperlipidemia): Code(s): E78.5 - Hyperlipidemia, unspecified Qualifiers: Hyperlipidemia type: mixed hyperlipidemia Qualified Code(s): E78.2 - Mixed hyperlipidemia Plan: Most recent lipid panel showing elevated total cholesterol. She is not interested in cholesterol medication at this time will continue working on lifestyle and dietary modifications. Goal LDL to be below 160 Orders: Orders Lipid Panel Today E78.2 - Mixed hyperlipidemia TSH reflex Free T4 Today E03.9 - Hypothyroidism, unspecified Comprehensive Hessel. Panel Fast Today E78.2 - Mixed hyperlipidemia Complete Blood Count no Diff Today E78.2 - Mixed hyperlipidemia Patient Instructions: Goal: LDL to remain below 160 Barrier: Adherence to physical activity and healthy eating habits Coding Level of Care Code Est Pt Level 4 (86239) Diagnoses Acquired hypothyroidism E03.9 Hypothyroidism type: acquired Lymphedema I89.0 Mixed hyperlipidemia E78.2 Hyperlipidemia type: mixed hyperlipidemia
== END 2024-02-18 10:49 | disposition home or self-care (01) ==
PROVIDERS: PCP Physician Assistant; Visit Provider Physician Assistant
DX: E03.9 Hypothyroidism, unspecified (principal); I89.0 Lymphedema, not elsewhere classified; E78.2 Mixed hyperlipidemia
CPT/HCPCS: 99214

== ENCOUNTER 2024-08-11 08:22 | Outpatient (REF) | payer MEDICARE, SELFPAY ==
--- OUTSIDE RECORDS SUMMARY | 2024-08-11 08:42 | XMS_ITS | Patient Health Record ---
[facility] Address [address] [place] [address] Care Team Providers Care Cross Country Coach Name Role Phone Flavio Ruiz Primary Care Provider Rachael Feliciano Unavailable [phone] Allergies Allergen (clinical drug ingredient) Drug/Non Drug Allergy documented on EMR Reaction Allergy Type Onset Date Status seasonal trees (uncoded) Unknown Allergy Active Poison Cecy Treatment Unknown Drug Allergy Active Latex Latex Unknown Allergy Active Penicillin Unknown Drug Allergy Active Reason For Referral No Information Medications Medication SIG (Take, Route, Fr equency, [...] Negative Encounters Encounter Location Date Provider Diagnosis [facility] [address] [place] [address] 04/30/2024 Rachael Owen [facility] [address] [place] [address] 05/29/2024 [facility] [address] [place] [address] 06/05/2024 Rachael Owen Plan Of Treatment No Information Insurance Providers Payer Name Payer Address Payer Phone Subscriber Number Group Number Insured Name Patient Relationship to Insured Coverage Start Date Coverage End Date Medicare National Govt Sv[employer] [address] [place] [address] [id number] Starla Christie Self - patient is the insured Medical (General) History Medical History History ICD Code Broken bones Cancer Numbness Poor circulation Eczema thyroid Vascular phlebitis (clots) Measles Chicken pox FX Tailbone Surgical History Surgery Date(Month/Year) [place] Endo 12/14/2015
--- OUTSIDE RECORDS SUMMARY | 2024-08-11 08:43 | XMS_ITS ---
Author Organization [facility] Address [address] [place] [address] Care Team Providers Care Wallpaper Hanger Name Role Phone Flavio Ruiz Primary Care Provider Unavailab Rachael Mcgowan Unavailable [phone] REASON FOR VISIT FLIGHT OPERATIONS COORDINATOR CX Encounters Encounter Location Date Provider Diagnosis [facility] [address] [place] [address] 06/05/2024 Rachael Owen Plan Of Treatment No Information Progress Notes * Starla CHRISTIE MDOB: 9 (74 yo F)Acc No.[id number]:06/05/2024 Patient:?Starla CHRISTIE :1950???Age:74 Y???Sex:Female Address:[address] [place] [address] * true * Date:? Generated for Paulai verena/Kely/eTransmitting on:?08/11/2024 08:42 AM EST
--- OUTSIDE RECORDS SUMMARY | 2024-08-11 08:43 | XMS_ITS ---
Author Organization [facility] Address [address] [place] [address] Care Team Providers Care Highway Technician Name Role Phone Flavio Ruiz Primary Care Provider Unavailab Rachael Mcgowan Unavailable [phone] Allergies Allergen (clinical drug ingredient) Drug/Non Drug [...] Negative Encounters Encounter Location Date Provider Diagnosis [facility] [address] [place] [address] 07/03/2024 Rachael Owen Plan Of Treatment No Information Progress Notes * Starla CHRISTIE MDOB: [birth year] (74 yo F)Acc No.[id number]:07/03/2024 Progress Notes Patient:?Starla CHRISTIE Provider:?Rachael Owen DPM :1950???Age:74 Y???Sex:Female D ate:07/03/2024 Address:[address], [facility], [id number] Pcp:Flavio Ruiz Subjective: * Chief Complaints: * ??? * ROS:?General/Constitutional:?Nausea?denies.?Vomiting?denies.?Hunger Thirst?denies.?Loss appetite?denies.?Chills?denies.?Fatigue?denies.?Fever?denies.?Night Sweats?denies.?Unexplained weight loss?denies.?Unexplained weight gain?denies.?HEENTM:?Dentures?denies.?Dizziness?denies.?Glasses/contacts?denies.?Retinopathy?de nies.?Blurred/double vision?denies.?TMJ?denies.?Discharge/drainage?denies.?Implants?denies.?Sore throat?denies.?Dental implants?denies.?Hard of hearing ?denies.?Difficulty chewing/swallowing/speaking?denies.?Nose bleeds?denies.?Sore mouth?denies.?Respiratory:?On Oxygen?denies.?Pneumonia/pleurisy?denies.?Bronchitis?denies.?Emphysema?denies.?C oughing?denies.?Cough blood?denies.?Shortness of breath?denies.?Wheezing?denies.?Cardiovascular:?Pacemaker?denies.?MVP?denies.?WPW?denies.?CHF?denies.?Heart attack?denies.?Septal defect?denies.?Rapid beat?denies.?Chest pain ?denies.?Atrial Fib.?admits.?Murmur/Palpitations?denies.?Gastrointestinal:?Hemorrhoids?denies.?Stomach/Abdominal pain?denies.?Dark blood stool?denies.?Irritable bowel ?denies.?Constipation?denies.?Diarrhea?denies.?Hematology:?Swelling?admits.?Clots?Admits.?Varicose Veins?admits.?Bruising?denies.?Bleeding problem?denies.?Genitourinary:?Blood urine?denies.?Frequent/Painfu/urination/bladder control?denies.?Kidney stones?denies.?Infection (UTI)?denies.?Nephropathy?admits.?sex trans dis (STD)?denies.?Prostate?denies.?Musculoskeletal:?Hammertoes?admits.?Bunions?denies.?Back Pain?denies.?Muscle Cramps/ Resting?denies.?Muscle cramps / walking?denies.?Generalized aches and pains?denies.?Weakness?denies.?Integ.:?Chavez?denies.?Scars?denies.?Corns/calluses?admits.?Ingrown nails?denies.?Painful nails?denies.?Open Sores?denies.?Rashes?admits.?Neurologic:?Difficulty sleeping?denies.?Brain disorder?denies.?Numbness?denies.?Balance trouble?denies.?Confusion?denies.?Fainting/blackouts?denies.?Tingling?denies.?Tr emors?denies.? * Medical History:?Broken bone s, Cancer, Numbness, Poor circulation, Eczema, Thyroid, Vascular phlebitis (clots), Measles, Chicken pox, FX Tailbone. * Surgical History:?[place] Endo 12/14/2015. * Family History:?Mother: dece ased, cancer.?Father: , heart attack.? * Social History:?Tobacco Use:?Tobacco use other than smoking?Are you an other tobacco user??No ?Tobacco Control (Standard)?Tobacco use:?Former smoker ?Additional Findings: Tobacco non-user?Current nonsmoker ???Drugs/Alcohol:?Drugs?Have you used drugs other than those for medical reasons in the past 12 months??No ???Miscellaneous:?Caffeine: yes, 3-5 cups per day. ?Children: no. ?Exercise: exercise/dancing. ?Marital status: . ???Drug/Alcohol:?AUDIT-C (Standard)?Did you have a drink containing alcohol in the past year??No ?Points?0 ?Interpretation?Negative * Medications:?Taking Eliquis , Taking Levothyroxine Sodium * Allergies:?Penicillin, Latex , seasonal trees, Poison Cecy Treatment. Objective: * Vitals:? Assessment: Plan: * Treatment: * Images: * The named appointment provid er may or may not be the originator of this progress note, and it is not deemed complete until electronically signed by the appointment provider. Sign off status: Pending * Provider:?Rachael Owen DPM Date:?0 07/03/2024 Generated for eRna albarado/Kely/Dash on:?08/11/2024 08:42 AM EST
--- OUTSIDE RECORDS SUMMARY | 2024-08-11 08:43 | XMS_ITS ---
Author Organization [facility] Address [address] [place] [address] Care Team Providers Care Rubber Cutting Machine Tender Name Role Phone Flavio Ruiz Primary Care Provider Unavailab Rachael Mcgowan Unavailable [phone] REASON FOR VISIT COUNTER POCKET SEWER PPWK Entered Encounters Encounter Location Date Provider Diagnosis [facility] [address] [place] [address] 05/29/2024 Rachael Owen Plan Of Treatment No Information Progress Notes * Starla CHRISTIE MDOB: [birth year] (74 yo F)Acc No.[id number]:05/29/2024 Patient:?Starla CHRISTIE :1950???Age:74 Y???Sex:Female Address:[address] [place] [address] * true * Date:? Generated for Paulai verean/Kely/eTransmitting on:?08/11/2024 08:42 AM EST
[2024-08-11 09:59] LABS: Hematocrit 41.1 % (37.0-47.0); Hemoglobin 13.8 g/dl (12.0-16.0); Mean Corpuscular HGB Conc 33.6 g/dl (31.0-35.0); Mean Corpuscular Hemoglobin 31.8 pg (27.0-33.0); Mean Corpuscular Volume 94.7 fL (80.0-98.0); Mean Platelet Volume 10.1 fL (9.4-12.3); Platelet Count 199 X10*3/uL (160-400); Red Blood Count 4.34 X10*6/uL (4.20-5.50); Red Cell Distribution Width 12.8 % (11.0-16.0); White Blood Count 4.7 X10*3/uL (4.8-10.8)
[2024-08-11 10:08] LABS: Appearance Urine Turbid; Color Urine Yellow; Glucose Urine UA Negative (Negative); Leukocyte Esterase Urine Large (3+) (Negative); Nitrite Urine Negative (Negative); UMIC TRIGGER UACC YES; Urine Blood Small (1+) (Negative); Urine Ketones Negative (Negative); Urine Protein Trace mg/dL (Neg-Trace)
[2024-08-11 10:22] LABS: Bacteria Urine Trace (None Seen); Hyaline Casts Urine 0-2 /LPF (0-2); RBC Urine 0-2 /HPF (0-2); UACC Culture Trigger YES; WBC Urine >50 /HPF (0-5)
[2024-08-11 10:54] LABS: Alanine Aminotransferase 13 U/L (0-31); Alkaline Phosphatase 89 U/L (39-117); Anion Gap 14 (12-20); Aspartate Amino Transferase 19 U/L (5-31); Bilirubin Total 0.5 mg/dL (0.0-1.0); Blood Urea Nitrogen 20 mg/dL (9-16); Calcium 9.1 mg/dL (8.4-10.2); Carbon Dioxide 24 mmol/L (22-29); Chloride 109 mmol/L (96-108); Cholesterol 216 mg/dL (<200); Estimated Glomerular Filt Rate > 60; Glucose Fasting 90 mg/dL (60-99); HDL Cholesterol 62 mg/dL (>40); LDL Cholesterol Calculated 131 mg/dL (<100); Potassium 4.6 mmol/L (3.3-5.1); Sodium 142 mmol/L (135-145); Total Protein 7.6 g/dL (6.5-8.0); Triglycerides 117 mg/dL (<150)
[2024-08-11 10:58] LABS: TSH reflex Free T4 0.83 uIU/mL (0.32-4.0)
== END 2024-08-11 08:23 | disposition home or self-care (01) ==
LOC: HO.LAB 08:22
PROVIDERS: PCP Physician Assistant; Visit Provider Physician Assistant
DX: R35.0 Frequency of micturition (principal); E78.2 Mixed hyperlipidemia; E03.9 Hypothyroidism, unspecified
CPT/HCPCS: 36415; 80053; 80061; 81001; 81003; 84443; 85027; 87086

== ENCOUNTER 2024-08-18 09:51 | Outpatient (AMB) | payer MEDICARE, SELFPAY ==
--- NOTE | 2024-08-18 10:01 | A.OFFPC_ITS ---
Vital Signs 08/18/24 10:02 Height 5 ft 8 in Weight 229 lb BMI 34.8 BP 128/76 Blood Pressure Location Lt brachial Position Sitting Pulse 85 Pulse Source Pulse Oximeter Pulse Oximetry (%) 97 Oxygen Delivery Method Room Air Intake Visit Reasons: f/u Hypothyroid, Lymphedema Intake Note: Patient here for a follow up Hypothyroid, Lymphedema Medical Genetics Director Required: No Accompanied by: Self / Same As Patient Allergies latex Allergy (Unknown, Verified 08/18/24 10:10) unknown penicillin V Allergy (Unknown, Verified 08/18/24 10:10) Unknown Medication List - Last Reconciled 08/18/24 by Flavio Ruiz PA-C apixaban (Eliquis) 5 mg PO Q12H 30 days cholecalciferol (vitamin D3) 25 mcg PO DAILY levothyroxine 150 mcg PO DAILY mometasone 0.1% topical multivitamin 1 tab PO DAILY nitrofurantoin monohyd/m-cryst 100 mg (Macrobid) 100 mg PO Q12H 5 days Tobacco use date assessed: 08/18/24 Fall risk assessment: No Falls in past year Last assessed Fall Risk: 08/18/24 Dental Screening Dental Screen Date: 08/18/24 Did you have a dental visit in the last 12 months?: No Did you have a dental problem in the last 6 months where you did not have access to dental care?: No Was dental information given to patient?: Patient has dentist HPI f/u Hypothyroid, Lymphedema HPI Details Patient is a 74-year-old female here today for follow-up visit. Patient has a past medical history significant for hypothyroidism, DVT. Hypothyroidism: ? She reports feeling well.? Most recent TSH stable. Continue current dose of levothyroxine. .. History endometrial malignancy/ lymphedema: ? Has had total? hysterectomy 2018 with chemo radiation.? Also had lymph node resection in the pelvis leading to bilateral lower extremity lymphedema. Patient subsequently had bilateral lower extremity DVTs and has been placed on Eliquis indefinitely. .. Borderline high cholesterol: Most recent lipid panel showing improved total cholesterol though still borderline high.. He has not interested in any medication at this time for cholesterol. She will work extensively on lifestyle and dietary modifications to reduce her cholesterol. Laboratory Tests 01/16/24 01/16/24 08/11/24 15:55 15:59 08:52 RBC 4.34 Cholesterol 241 H 216 H LDL Cholesterol, C alc 149 H 131 H TSH 0.83 Ur Leukocyte Catrachita ase Large (3+) H Urine Bacteria 4+ Trace PFSH Surgical History History of surgery History of drainage of abscess History of removal of Port-a-Cath History of cardioversion History of thyroid nodule History of laparoscopy-assisted vaginal hysterectomy History of D&C Family History Father Heart failure Prostate cancer Mother Lung cancer Sister Lung cancer Sister Brain tumor Brother Pancreatic cancer Social History Housing: Apartment Alcohol intake: never Patient Tobacco Use Status: Never used Tobacco e-Cigarette/Vaping Use: Never Used Second Hand Smoke Exposure: No service: No Current occupational status: retired Cognitive needs: No Hearing needs: No Vision needs: Yes (glasses for driving ) Questionnaire PHQ-9 Over the last 2 weeks, how often have you been bothered by any of the following problems? 1. Little interest or pleasure in doing things: not at all 2. Feeling down, depressed, or hopeless: not at all 3. Trouble falling or staying asleep, or sleeping too much: not at all 4. Feeling tired or having little energy: not at all 5. Poor appetite or overeating: not at all 6. Feeling bad about yourself - or that you are a failure or have let yourself or your family down: not at all 7. Trouble concentrating on things, such as reading the newspaper or watching television: not at all 8. Moving or speaking so slowly that other people could have noticed. Or the opposite - being so fidgety or restless that you have been moving around a lot more than usual: not at all 9. Thoughts that you would be better off or of hurting yourself in some way: not at all Total score: 0 Depression Screening Interpretation: Negative Depression Screening Done: Yes 01442 - PHQ-9 Billing: Yes Source: Developed by Drs. Gualberto Pascual, Emerita Wu, Bob Forte and colleagues, with an educational tevin from [employer]. Thrive Questionnaire Date Thrive assessed: 08/18/24 I am a: Patient What is your living situation today?: I have a steady place to live Within the past 12 months, did the food you bought not last and you didn't have the money to get more?: Never true Within the past 12 months, did you worry whether your food would run out before you got money to buy more?: Never true Do you have trouble paying for medicines?: No Do you have trouble getting transportation to medical appointments?: No Do you have trouble paying your heating and electricity bill?: No Do you have trouble taking care of your child, family member or friend?: No Do you have trouble with day-to-day activities such as bathing, preparing meals, shopping, managing finances, etc.?: No Are you currently unemployed and looking for a job?: No Are you interested in more education?: No Please select the resources that you would like help with: None Currently or been in a relationship where the following occur: No concerns reported THRIVE Score: 0 AUDIT C Alcohol Use Questionnaire (AUDIT-C) 1. How often do you have a drink containing alcohol?: Never Total Score: 0 DAVID-7 AMB Questionnaire DAVID-7 Date DAVID - 7 assessed: 08/18/24 Feeling nervous, anxious, or on edge: 0 = Not at all Not being able to stop or control worryin = Not at all Worrying too much about different things: 0 = Not at all Trouble relaxin = Not at all Being so restless that it is hard to sit still: 0 = Not at all Becoming easily annoyed or irritable: 0 = Not at all Feeling afraid as if something awful might happen: 0 = Not at all Total DAVID-7 score (0-4 normal; 5-9 mild; 10-14 moderate; 15-21 severe): 0 Source: Developed by Drs. Gualberto Pascual, Emerita Wu, Bob Forte and colleagues, with an educational tevin from [employer]. DAVID-7 Assessment Billing DAVID-7 Assessment Tool: DAVID-7 Assessment 24973 Review of Systems Const Denies headache(s) Eyes Denies loss of vision ENT Denies vertigo, Denies dizziness, Denies headache(s) and Denies sore throat Card Denies chest pain, Denies leg edema and Denies lightheadedness Resp Denies cough, Denies hemoptysis and Denies wheezing GI Denies abdominal pain, Denies melena, Denies constipation, Denies diarrhea and Denies vomiting Denies urinary frequency, Denies dysuria and Denies urinary urgency Musc Denies arthralgias, Denies joint swelling, Denies numbness and Denies tingling Neuro Denies Abnormal speech present, Denies behavioral changes, Denies vertigo, Denies dizziness, Denies headache(s), Denies loss of vision, Denies memory loss, Denies numbness and Denies tingling Psych Denies anxiety, Denies behavioral changes, Denies depression, Denies memory loss and Denies panic attacks Neo/Lymph Denies easy bleeding and Denies easy bruising Aller/Immun Denies wheezing Physical exam (Primary Care) Vital Signs: Last Vital Signs Pulse 85 08/18/24 10:02 BP 128/76 08/18/24 10:02 Pulse Ox 97 08/18/24 10:02 Oxygen Delivery Method Room Air 08/18/24 10:02 BMI result Body Mass Index 34.8 Tobacco/Smoking Status: Tobacco use Status Tobacco use date assessed 08/18/24 08/18/24 10:07 Patient Tobacco Use Status Never used Tobacco 08/18/24 10:07 e-Cigarette/Vaping Use Never Used 08/18/24 10:07 PHQ-9: PHQ-9 Score PHQ-9: Total score 0 08/18/24 10:12 Depression Screening Interpretation: Negative Thrive Assessment: Date of Thrive Assessment Date Thrive assessed 08/18/24 08/18/24 10:07 Currently or been in a relationship where the following occur: No concerns reported Const General: healthy appearing, no acute distress, alert and awake Nutritional Appearance: well nourished Orientation/consciousness: oriented to person, oriented to place and oriented to time HENMT Ears: TM's normal bilaterally General nose exam: Normal nasal mucous membranes and turbinates present Eyes Conjunctivae: conjunctivae normal Sclerae: sclerae normal Pupils: Equal, round and reactive pupils present Neck Neck: Yes no lymphadenopathy and Yes no JVD Thyroid: Thyroid normal Carotids: no bruits Resp Effort & Inspection: normal respiratory effort and not tachypneic Auscultation: no crackles, no rales, no rhonchi and no wheezes Cardio Rate: regular rate Rhythm: regular rhythm Heart sounds: no murmurs and normal S1 and S2 GI Palpation (GI): Soft to palpation, nontender, no hepatomegaly and no splenomegaly Auscultation: normal bowel sounds Skin General skin exam: no rashes or lesions noted and dry skin Neuro General: oriented to person, oriented to place and oriented to time Cranial nerves: Yes Equal, round and reactive pupils present Speech: No Abnormal speech present Gait exam (Neuro): Normal gait present Motor exam (neuro): no tremor noted Extrem Other: SEVERE BILATERAL LOWER LYMPHEDEMA. HYPERPIGMENTED SKIN CHANGES NOTED Right upper extremity: full ROM Left upper extremity: full ROM Right lower extremity: full ROM and edema Left lower extremity: full ROM and edema Psych Mental Status: mental status grossly normal Speech and movement: Normal speech and movement present Affect: normal affect Attitude: cooperative Thought process: Normal thought process present Coding Level of Care Code Est Pt Level 4 (64061) Diagnoses Borderline high cholesterol E78.9 Chronic deep vein thrombosis (DVT) of popliteal vein of both lower extremities I82.533 Affected thrombotic vein of extremity: popliteal Chronicity: chronic DVT location: lower extremity Laterality: bilateral Dermatitis L30.9 Acquired hypothyroidism E03.9 Hypothyroidism type: acquired Lymphedema I89.0 Additional Codes PHQ-9 - 50075 - PHQ-9 Billing: Yes ([id number]) DAVID-7 Assessment Billing - DAVID-7 Assessment Tool: DAVID-7 Assessment 17270 ([id number]) Assessment & Plan Assessment & Plan (1) Borderline high cholesterol: Code(s): E78.9 - Disorder of lipoprotein metabolism, unspecified Category: Medical Plan: Patient's most recent lipid panel showing better control over total cholesterol and LDL. At this point she is managing with dietary modifications. Goal LDL is to remain below 130. 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 She continues on Eliquis indefinitely. She denies any overt signs of bleeding. (3) Dermatitis: Code(s): L30.9 - Dermatitis, unspecified Category: Medical Plan: Has noted a dermatitis/eczema type reaction over her arms which has been treated with topical steroids in the past with good effect. (4) Hypothyroidism: Code(s): E03.9 - Hypothyroidism, unspecified Category: Medical Qualifiers: Hypothyroidism type: acquired Qualified Code(s): E03.9 - Hypothyroidism, unspecified Plan: Patient's most recent TSH stable. Will continue her current dose of levothyroxine 150 mcg. Will continue to follow TSH to assure normal. (5) Lymphedema: Code(s): I89.0 - Lymphedema, not elsewhere classified Category: Medical Plan: As per HPI patient is considering returning back to the lymphedema clinic for wrappings a mechanical massage. She continues to have bilateral lower extremity lymphedema with skin changes of hyper pigmentation. She at times does have weeping skin and ulcerations he is able to manage at home with dry dressings. Orders: Orders Lipid Panel 08/18/24 E78.2 - Mixed hyperlipidemia TSH reflex Free T4 08/18/24 E03.9 - Hypothyroidism, unspecified Comprehensive [place]. Panel Fast 08/18/24 Z13.1 - Encounter for screening for diabetes mellitus Complete Blood Count no Diff 08/18/24 Z13.1 - Encounter for screening for diabetes mellitus UA CC w/rflx Micro + Cult 08/18/24 R30.0 - Dysuria, R35.0 - Frequency of micturition Medications: New mometasone 0.1% 1 appl topical DAILY 45 grams 1RF 14 days L30.9 - Dermatitis, unspecified Refilled nitrofurantoin monohyd/m-cryst 100 mg (Macrobid) must administer with a meal/food 100 mg PO Q12H 10 caps 0RF 5 days R35.0 - Frequency of micturition Patient Instructions: Goal: Total cholesterol to be below 200 and LDL to be below 130 Barriers: Adherence to physical activity and healthy eating habits
[2024-08-18 10:02] VITALS: BP 128/76; PULSE 85; O2SAT 97; BMI 34.8
--- OUTSIDE RECORDS SUMMARY | 2024-08-18 10:46 | XMS_ITS ---
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 Generated for Paulai verean/Kely/eTransmitting on:?08/18/2024 10:46 AM EDT
--- OUTSIDE RECORDS SUMMARY | 2024-08-18 10:46 | XMS_ITS | Patient Health Record ---
[facility] [place] Address [address] [place] [address] Care Team Providers Care Vegetable Loader Name Role Phone Flavio Ruiz Primary Care Provider Rachael Feliciano Unavailable [phone] Allergies Allergen (clinical drug ingredient) Drug/Non Drug [...] Negative Encounters Encounter Location Date Provider Diagnosis [facility] [address] [place] [address] 04/30/2024 Rachael Owen [facility] [address] [place] [address] 05/29/2024 [facility] [address] [place] [address] 06/05/2024 Rachael Owen Plan Of Treatment No Information Insurance Providers Payer Name Payer Address Payer Phone Subscriber Number Group Number Insured Name Patient Relationship to Insured Coverage Start Date Coverage End Date Medicare National [employer] [address] [place] [address] [id number] Starla Christie Self - patient is the insured Medical (General) History Medical History History ICD Code Broken bones Cancer Numbness Poor circulation Eczema thyroid Vascular phlebitis (clots) Measles Chicken pox FX Tailbone Surgical History Surgery Date(Month/Year) [place] Endo 12/14/2015
== END 2024-08-18 10:43 | disposition home or self-care (01) ==
PROVIDERS: PCP Physician Assistant; Visit Provider Physician Assistant
DX: E78.9 Disorder of lipoprotein metabolism, unspecified (principal); I82.533 Chronic embolism and thrombosis of popliteal vein, bilateral; L30.9 Dermatitis, unspecified; E03.9 Hypothyroidism, unspecified; I89.0 Lymphedema, not elsewhere classified

== ENCOUNTER → 2024-08-18 09:51 | Outpatient (BNVA) | payer MEDICARE, SELFPAY | PROVIDERS: PCP Physician Assistant; Visit Provider Physician Assistant | DX: E78.9 Disorder of lipoprotein metabolism, unspecified (principal); I82.533 Chronic embolism and thrombosis of popliteal vein, bilateral; L30.9 Dermatitis, unspecified; E03.9 Hypothyroidism, unspecified; I89.0 Lymphedema, not elsewhere classified | CPT/HCPCS: 96127; 99212 ==

== ENCOUNTER 2025-02-10 08:09 | Outpatient (REF) | payer MEDICARE, SELFPAY ==
--- OUTSIDE RECORDS SUMMARY | 2024-07-03 06:30 | XMS_ITS ---
Author Organization [facility] Address [address] [place] [address] Care Team Providers Care Transformer Stock Clerk Name Role Phone Flavio Ruiz Primary Care Provider Unavailab Rachael Mcgowan Unavailable [phone] Allergies Allergen (clinical drug ingredient) Drug/Non Drug Allergy documented on EMR Reaction Allergy Type Onset Date Status seasonal trees (uncoded) Unknown Allergy Active Poison Cecy Treatment Unknown Drug Allergy Active Latex Latex Unknown Allergy Active Penicillin Unknown Drug Allergy Active Medications Medication SIG (Take, Route, Fr equency, Duration) Notes Start Date End Date Status Levothyroxine Sodium Active Eliquis Active Social History Tobacco Use: Social History Observation Description Date Details (start date - stop date) Former Smoker NA - NA Tobacco use other than smoking: Question Answer Notes Are you an other tobacco user? No Tobacco Control (Standard) Question Answer Notes Tobacco use: Former smoker Additional Findings: Tobacco non-user Current no nsmoker AUDIT-C (Standard) Question Answer Notes Did you have a drink containing alcohol in the p ast year? No Points 0 Interpretation Negative Encounters Encounter Location Date Provider Diagnosis [facility] [address] [place] [address] 07/03/2024 Rachael Owen Plan Of Treatment No Information Progress Notes * Starla CHRISTIE MDOB: 9 (74 yo F)Acc No.[id number]:07/03/2024 Progress Notes Patient: Leona MAXWELLStarla LIRA Provider: Akbar Owen DPM :1950 A ge:74 Y S ex:Female Date:07/03/2024 Address:[address] [place] [address], [id number] Pcp:Flavio Ruiz Subjective: * Chief Complaints: * * ROS: G eneral/Constitutional: Nausea d enies. V omiting d enies. H chung Thirst d enies. L oss appetite d enies. C hills d enies. F atigue d enies.?Fever d enies. N ight Sweats d enies. U nexplained weight loss d enies. U nexplained weight gain d enies. H EENTM: Dentures d enies. D izziness d enies. G lasses/contacts d enies. R etinopathy d enies. B lurred/double vision d enies. T MJ?denies. D ischarge/drainage d enies. I mplants d enies. S ore throat d enies. D ental implants d enies. H janelle of hearing d enies. D ifficulty chewing/swallowing/speaking d enies. N ose bleeds d enies. S ore mouth d enies. ? R espiratory: On Oxygen d enies. P neumonia/pleurisy d enies.?Bronchitis d enies. E mphysema d enies. C oughing d enies. C ough blood?denies. S hortness of breath d enies. W heezing d enies. C ardiovascular: Pacemaker d enies. M ASSISTIVE TECHNOLOGY TRAINER d enies. W PW d enies. C HF d enies. H eart attack d enies. S eptal defect d enies. R apid beat d enies. C hest pain d enies. A trial Fib. a dmits. M urmur/Palpitations d enies. G astrointestinal: Hemorrhoids d enies. S tomach/Abdominal pain d enies. D ark blood stool d enies. I rritable bowel d enies. C onstipation d enies. D iarrhea d enies. H ematology: Swelling a dmits. C lots A dmits. V aricose Veins a dmits. B ruising d enies. B leeding problem d enies. G enitourinary: Blood urine d enies. F requent/Painfu/urination/bladder control d enies. K idney stones d enies. I nfection (UTI) d enies. N ephropathy a dmits. s ex trans dis (STD) d enies. P rostate d enies. M usculoskeletal: Hammertoes a dmits. B unions d enies. B ack Pain d enies. M uscle Cramps/ Resting d enies. M uscle cramps / walking d enies.?Generalized aches and pains d enies. W eakness d enies. I nteg.: Chavez d enies. S cars d enies. C orns/calluses?admits. I ngrown nails d enies. P ainful nails d enies. O pen Sores d enies. R ashes a dmits. N eurologic: Difficulty sleeping d enies. B rain disorder d enies. N umbness d enies. B alance trouble d enies. C onfusion d enies. F ainting/blackouts d enies. T ingling d enies. T remors d enies. * Medical History: B roken bones, Cancer, Numbness, Poor circulation, Eczema, Thyroid, Vascular phlebitis (clots), Measles, Chicken pox, FX Tailbone. * Surgical History: Akbar Duque Endo 12/14/2015. * Family History: M other: , cancer. F ather: , heart attack. * Social History: T obacco Use: T obacco use other than smoking A re you an other tobacco user? N o Tobacco Control (Standard) T obacco use: F ormer smoker A dditional Findings: Tobacco non-user C urrent nonsmoker D rugs/Alcohol: D rugs H ave you used drugs other than those for medical reasons in the past 12 months? N o M iscellaneous: C affeine: yes, 3-5 cups per day. Children: no. Exercise: exercise/dancing. Marital status: . D rug/Alcohol: A TEE-C (Standard) D id you have a drink containing alcohol in the past year? N o P oints 0 I nterpretation N egative * Medications: T aking Eliquis , Taking Levothyroxine Sodium * Allergies: P enicillin, Latex, seasonal trees, Poison Cecy Treatment. Objective: * Vitals: Assessment: Plan: * Treatment: * Images: * The named appointment provid er may or may not be the originator of this progress note, and it is not deemed complete until electronically signed by the appointment provider. Sign off status: Pending * Provider: Akbar Owen DPM Date: 0 07/03/2024 Generated for Rena albarado/Kely/Mercedesitting on: 0 02/10/2025 08:37 AM EDT
--- OUTSIDE RECORDS SUMMARY | 2025-02-10 08:38 | XMS_ITS | Patient Health Record ---
[facility] [place] Address [address] [place] [address] Care Team Providers Care [employer] Instructor Name Role Phone Flavio Ruiz Primary Care Provider Rachael Feliciano Unavailable [phone] Allergies Allergen (clinical drug ingredient) Drug/Non Drug [...] Negative Encounters Encounter Location Date Provider Diagnosis [facility] [address] [place] [address] 04/30/2024 Rachael Owen [facility] [address] [place] [address] 05/29/2024 [facility] [address] [place] [address] 06/05/2024 Rachael Owen Plan Of Treatment No Information Insurance Providers Payer Name Payer Address Payer Phone Subscriber Number Group Number Insured Name Patient Relationship to Insured Coverage Start Date Coverage End Date Medicare National Gov[employer] Sv[employer] [address] [place] [address] [id number] Starla Christie Self - patient is the insured Medical (General) History Medical History History ICD Code Broken bones Cancer Numbness Poor circulation Eczema thyroid Vascular phlebitis (clots) Measles Chicken pox FX Tailbone Surgical History Surgery Date(Month/Year) [place] Endo 12/14/2015
[2025-02-10 09:15] LABS: Hematocrit 39.7 % (37.0-47.0); Hemoglobin 13.3 g/dl (12.0-16.0); Mean Corpuscular HGB Conc 33.5 g/dl (31.0-35.0); Mean Corpuscular Hemoglobin 31.7 pg (27.0-33.0); Mean Corpuscular Volume 94.5 fL (80.0-98.0); NRBC Abs Auto 0.000 X10*3/uL (0.0-0.012); NRBC Pct Auto 0.0 /100WBC (0.0-0.2); Platelet Count 207 X10*3/uL (160-400); Red Blood Count 4.20 X10*6/uL (4.20-5.50); White Blood Count 4.9 X10*3/uL (4.8-10.8)
[2025-02-10 09:28] LABS: Appearance Urine Turbid; Glucose Urine UA Negative (Negative); PH 6.5 (5.0-9.0); Specific Gravity - Urine 1.015 (1.005-1.025); UMIC TRIGGER UACC YES
[2025-02-10 09:50] LABS: UACC Culture Trigger YES
[2025-02-10 09:59] LABS: Alanine Aminotransferase 23 U/L (0-31); Albumin Level 4.2 g/dL (3.5-5.0); Alkaline Phosphatase 86 U/L (39-117); Anion Gap 11 (12-20); Aspartate Amino Transferase 25 U/L (5-31); Blood Urea Nitrogen 15 mg/dL (9-16); Calcium 8.8 mg/dL (8.4-10.2); Carbon Dioxide 23 mmol/L (22-29); Chloride 110 mmol/L (96-108); Cholesterol 227 mg/dL (<200); Estimated Glomerular Filt Rate 59; HDL Cholesterol 62 mg/dL (>40); Potassium 4.3 mmol/L (3.3-5.1); Sodium 140 mmol/L (135-145); Total Protein 7.1 g/dL (6.5-8.0); Triglycerides 85 mg/dL (<150)
== END 2025-02-10 08:10 | disposition home or self-care (01) ==
LOC: HO.LAB 08:09
PROVIDERS: PCP Physician Assistant; Visit Provider Physician Assistant
DX: E78.2 Mixed hyperlipidemia (principal); E03.9 Hypothyroidism, unspecified; Z13.1 Encounter for screening for diabetes mellitus
CPT/HCPCS: 36415; 80053; 80061; 81001; 84443; 85027; 87086

== ENCOUNTER 2025-02-16 09:49 | Outpatient (AMB) | payer MEDICARE, SELFPAY ==
--- OUTSIDE RECORDS SUMMARY | 2024-07-03 06:30 | XMS_ITS ---
Author Organization [facility] Address [address] [place] [address] Care Team Providers Care Spud Sorter Name Role Phone Flavio Ruiz Primary Care Provider Unavailab Rachael Mcgowan Unavailable [phone] Allergies Allergen (clinical drug ingredient) Drug/Non Drug [...] Negative Encounters Encounter Location Date Provider Diagnosis [facility] [address] [place] [address] 07/03/2024 Rachael Owen Plan Of Treatment No Information Progress Notes * Starla CHRISTIE MDOB: [birth year] (74 yo F)Acc No.[id number]:07/03/2024 Progress Notes Patient: Leona MAXWELLStarla LIRA Provider: Akbar Owen DPM :1950 A ge:74 Y S ex:Female Date:07/03/2024 Address:[address] [place] [address], [id number] Pcp:Flavio Ruiz Subjective: * Chief Complaints: * [...] enies. C ardiovascular: Pacemaker d enies. M COATING INSPECTOR d enies. W PW d enies. C [...] 07/03/2024 Generated for Rena albarado/Kely/Mercedesitting on: 0 02/16/2025 11:25 AM EDT
--- NOTE | 2025-02-16 09:52 | MHC.PC.OV ---
Vital Signs 02/16/25 09:54 02/16/25 10:19 Height 5 ft 8 in Weight 226 lb 4 oz BMI 34.4 BP 140/78 H 115/78 Blood Pressure Location Rt brachial Position Sitting Pulse 91 Pulse Source Pulse Oximeter Temp 96.6 F L Temp Source Temporal Artery Scan Pulse Oximetry (%) 98 Oxygen Delivery Method Room Air Intake Visit Reasons: 6 Month F/U Intake Note: Patient is here to follow up on Hypothyroidism, HLD. 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: Not Required per policy Accompanied by: Self / Same As Patient Allergies latex Allergy (Unknown, Verified 02/16/25 10:08) unknown penicillin V Allergy (Unknown, Verified 02/16/25 10:08) Unknown Medication List - Last Reconciled 02/16/25 by Flavio Ruiz PA-C apixaban (Eliquis) 5 mg PO Q12H 30 days cholecalciferol (vitamin D3) 25 mcg PO DAILY levothyroxine 150 mcg PO DAILY mometasone 0.1% 1 appl topical DAILY 14 days multivitamin 1 tab PO DAILY Tobacco use date assessed: 02/16/25 Fall risk assessment: No Falls in past year Last assessed Fall Risk: 02/16/25 Dental Screening Dental Screen Date: 08/18/24 HPI 6 Month F/U HPI Details Patient is a 74-year-old female here today for follow-up visit. Patient has a past medical history significant for hypothyroidism, DVT. Concerns--> The patient reports a history of recurrent urinary tract infections characterized by cloudy urine and leukocytes present in urinalysis. She previously received a stronger antibiotic which cleared the symptoms temporarily, but the cloudy urine returned after a few weeks. The patient is concerned about the potential impact of local water quality on her condition, as she has noticed jamar water due to nearby construction. Hypothyroidism: ? She reports feeling well.? Most recent TSH stable. Continue current dose of levothyroxine 150mcg. .. History endometrial malignancy/ lymphedema: ? Has had total? hysterectomy 2018 with chemo radiation.? Also had lymph node resection in the pelvis leading to bilateral lower extremity lymphedema. Patient subsequently had bilateral lower extremity DVTs and has been placed on Eliquis indefinitely. .. Borderline high cholesterol: Most recent lipid panel showing improved total cholesterol though still borderline high.. He has not interested in any medication at this time for cholesterol. She will work extensively on lifestyle and dietary modifications to reduce her cholesterol. [facility] Surgical History History of surgery History of drainage of abscess History of removal of Port-a-Cath History of cardioversion History of thyroid nodule History of laparoscopy-assisted vaginal hysterectomy History of D&C Family History Father Heart failure Prostate cancer Mother Lung cancer Sister Lung cancer Sister Brain tumor Brother Pancreatic cancer Social History Housing: Apartment Alcohol intake: never Patient Tobacco Use Status: Never used Tobacco e-Cigarette/Vaping Use: Never Used Second Hand Smoke Exposure: No service: No Current occupational status: retired Cognitive needs: No Hearing needs: No Vision needs: Yes (glasses for driving ) Questionnaire PHQ-9 Over the last 2 weeks, how often have you been bothered by any of the following problems? 2. Feeling down, depressed, or hopeless: nearly every day Source: Developed by Drs. Gualberto Pascual, Emerita Wu, Bob Forte and colleagues, with an educational tevin from [employer]. Thrive Questionnaire Date Thrive assessed: 08/18/24 DAVID-7 AMB Questionnaire DAVID-7 Date DAVID - 7 assessed: 08/18/24 Source: Developed by Drs. Gualberto Pascual, Emerita Wu, Bob Forte and colleagues, with an educational tevin from [employer]. Review of Systems Const Denies headache(s) Eyes Denies loss of vision ENT Denies vertigo, Denies dizziness, Denies headache(s) and Denies sore throat Card Denies chest pain, Denies leg edema and Denies lightheadedness Resp Denies cough, Denies hemoptysis and Denies wheezing GI Denies abdominal pain, Denies melena, Denies constipation, Denies diarrhea and Denies vomiting Denies urinary frequency, Denies dysuria and Denies urinary urgency Musc Denies arthralgias, Denies joint swelling, Denies numbness and Denies tingling Neuro Denies Abnormal speech present, Denies behavioral changes, Denies vertigo, Denies dizziness, Denies headache(s), Denies loss of vision, Denies memory loss, Denies numbness and Denies tingling Psych Denies anxiety, Denies behavioral changes, Denies depression, Denies memory loss and Denies panic attacks Neo/Lymph Denies easy bleeding and Denies easy bruising Aller/Immun Denies wheezing Physical exam (Primary Care) Vital Signs: Last Vital Signs Temp 96.6 F L 02/16/25 09:54 Pulse 91 02/16/25 09:54 BP 140/78 H 02/16/25 09:54 Pulse Ox 98 02/16/25 09:54 Oxygen Delivery Method Room Air 02/16/25 09:54 BMI result Body Mass Index 34.4 Tobacco/Smoking Status: Tobacco use Status Tobacco use date assessed 02/16/25 02/16/25 09:59 Patient Tobacco Use Status Never used Tobacco 02/16/25 09:59 e-Cigarette/Vaping Use Never Used 02/16/25 09:59 Thrive Assessment: Date of Thrive Assessment Date Thrive assessed 08/18/24 02/16/25 09:59 Const General: healthy appearing, no acute distress, alert and awake Nutritional Appearance: well nourished Orientation/consciousness: oriented to person, oriented to place and oriented to time HENMT Ears: TM's normal bilaterally General nose exam: Normal nasal mucous membranes and turbinates present Eyes Conjunctivae: conjunctivae normal Sclerae: sclerae normal Pupils: Equal, round and reactive pupils present Neck Neck: Yes no lymphadenopathy and Yes no JVD Thyroid: Thyroid normal Carotids: no bruits Resp Effort & Inspection: normal respiratory effort and not tachypneic Auscultation: no crackles, no rales, no rhonchi and no wheezes Cardio Rate: regular rate Rhythm: regular rhythm Heart sounds: no murmurs and normal S1 and S2 GI Palpation (GI): Soft to palpation, nontender, no hepatomegaly and no splenomegaly Auscultation: normal bowel sounds Skin General skin exam: no rashes or lesions noted and dry skin Neuro General: oriented to person, oriented to place and oriented to time Cranial nerves: Yes Equal, round and reactive pupils present Speech: No Abnormal speech present Gait exam (Neuro): Normal gait present Motor exam (neuro): no tremor noted Extrem Right upper extremity: full ROM Left upper extremity: full ROM Right lower extremity: full ROM; no edema Left lower extremity: full ROM; no edema Psych Mental Status: mental status grossly normal Speech and movement: Normal speech and movement present Affect: normal affect Attitude: cooperative Thought process: Normal thought process present Coding Level of Care Code Est Pt Level 4 (24404) Diagnoses Borderline high cholesterol E78.9 Chronic deep vein thrombosis (DVT) of popliteal vein of both lower extremities I82.533 DVT location: lower extremity Affected thrombotic vein of extremity: popliteal Chronicity: chronic Laterality: bilateral Acquired hypothyroidism E03.9 Hypothyroidism type: acquired Lymphedema I89.0 Pyuria R82.81 Assessment & Plan Assessment & Plan (1) Borderline high cholesterol: Code(s): E78.9 - Disorder of lipoprotein metabolism, unspecified Category: Medical Plan: Patient's most recent lipid panel showing better control over total cholesterol and LDL. At this point she is managing with dietary modifications. Goal LDL is to remain below 130. 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 She continues on Eliquis indefinitely. She denies any overt signs of bleeding. (3) Hypothyroidism: Code(s): E03.9 - Hypothyroidism, unspecified Category: Medical Qualifiers: Hypothyroidism type: acquired Qualified Code(s): E03.9 - Hypothyroidism, unspecified Plan: Patient's most recent TSH stable. Will continue her current dose of levothyroxine 150 mcg. Will continue to follow TSH to assure normal. (4) Lymphedema: Code(s): I89.0 - Lymphedema, not elsewhere classified Category: Medical Plan: As per HPI patient is considering returning back to the lymphedema clinic for wrappings a mechanical massage. She continues to have bilateral lower extremity lymphedema with skin changes of hyper pigmentation. She at times does have weeping skin and ulcerations he is able to manage at home with dry dressings. (5) Pyuria: Code(s): R82.81 - Pyuria Category: Medical Plan: The patient will be prescribed a longer course of antibiotics, specifically macrobid, to address the recurrent urinary tract infection. She is advised to switch to bottled water to see if it alleviates symptoms, given concerns about local water quality. A follow-up urinalysis and urine cytology will be conducted to monitor the condition. Orders: Orders Comprehensive [place]. Panel Fast Today E78.2 - Mixed hyperlipidemia UA CC w/rflx Micro + Cult Today R30.0 - Dysuria, R82.81 - Pyuria Lipid Panel Today E78.2 - Mixed hyperlipidemia Urine Cytology Today R82.81 - Pyuria Complete Blood Count no Diff Today E78.2 - Mixed hyperlipidemia TSH reflex Free T4 Today E03.9 - Hypothyroidism, unspecified Medications: New nitrofurantoin macrocrystal must administer with a meal/food 50 mg PO BEDTIME 14 caps 0RF 14 days R82.81 - Pyuria
[2025-02-16 09:54] VITALS: BP 140/78; PULSE 91; TEMP 35.9; O2SAT 98; BMI 34.4
[2025-02-16 10:19] VITALS: BP 115/78
--- OUTSIDE RECORDS SUMMARY | 2025-02-16 11:25 | XMS_ITS | Patient Health Record ---
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 [address] [place] [address] 06/05/2024 Rachael Owen Plan Of Treatment No Information Insurance Providers Payer Name Payer Address Payer Phone Subscriber Number Group Number Insured Name Patient Relationship to Insured Coverage Start Date Coverage End Date Medicare National [employer] [address] [facility] [place] [address] [id number] Starla Christie Self - patient is the insured Medical (General) History Medical History History ICD Code Broken bones Cancer Numbness Poor circulation Eczema thyroid Vascular phlebitis (clots) Measles Chicken pox FX Tailbone Surgical History Surgery Date(Month/Year) [place] Endo 12/14/2015
== END 2025-02-16 10:42 | disposition home or self-care (01) ==
LOC: HO.HMCH 09:50
PROVIDERS: PCP Physician Assistant; Visit Provider Physician Assistant
DX: E78.9 Disorder of lipoprotein metabolism, unspecified (principal); I82.533 Chronic embolism and thrombosis of popliteal vein, bilateral; E03.9 Hypothyroidism, unspecified; I89.0 Lymphedema, not elsewhere classified; R82.81 Pyuria

== ENCOUNTER → 2025-02-16 09:49 | Outpatient (BNVA) | payer MEDICARE, SELFPAY | PROVIDERS: PCP Physician Assistant; Visit Provider Physician Assistant | DX: I82.533 Chronic embolism and thrombosis of popliteal vein, bilateral (principal); E03.9 Hypothyroidism, unspecified; I89.0 Lymphedema, not elsewhere classified; R82.81 Pyuria; E78.2 Mixed hyperlipidemia; R30.0 Dysuria; Z79.01 Long term (current) use of anticoagulants | CPT/HCPCS: 99212 ==

== ENCOUNTER 2025-03-12 12:42 | Outpatient (REF) | payer MEDICARE, SELFPAY ==
--- OUTSIDE RECORDS SUMMARY | 2024-07-03 06:30 | XMS_ITS ---
Author Organization [facility] Address [address] [place] [address] Care Team Providers Care Administrative Judge Name Role Phone Flavio Ruiz Primary Care Provider Unavailab Rachael Mcgowan Unavailable [phone] Allergies Allergen (clinical drug ingredient) Drug/Non Drug [...] Negative Encounters Encounter Location Date Provider Diagnosis [facility] [address] [place] [address] 07/03/2024 Rachael Owen Plan Of Treatment No Information Progress Notes * Starla CHRISTIE MDOB: [birth year] (74 yo F)Acc No.[id number]:07/03/2024 Progress Notes Patient: Leona MAXWELLStarla LIRA Provider: Akbar Owen DPM :1950 A ge:74 Y S ex:Female Date:07/03/2024 Address:[address] [place] [address], [id number] Pcp:Flavio Ruiz Subjective: * Chief Complaints: * [...] enies. C ardiovascular: Pacemaker d enies. M HEAD START DIRECTOR d enies. W PW d enies. C [...] DPM Date: 0 07/03/2024 Generated for Rena albarado/Kely/Dash on: 02:13 PM EDT
--- OUTSIDE RECORDS SUMMARY | 2025-03-12 14:15 | XMS_ITS | Patient Health Record ---
[facility]on [facility] Address [address] [place] [address] Care Team Providers Care Business Instructor Name Role Phone Flavio Ruiz Primary Care Provider Rachael Feliciano Unavailable [phone] Allergies Allergen (clinical drug ingredient) Drug/Non Drug [...] Negative Encounters Encounter Location Date Provider Diagnosis [facility] [address] [place] [address] 04/30/2024 Rachael Owen [facility] [address] [place] [address] 05/29/2024 [facility] [address] [place] [address] 06/05/2024 Rachael Owen Plan Of Treatment No Information Insurance Providers Payer Name Payer Address Payer Phone Subscriber Number Group Number Insured Name Patient Relationship to Insured Coverage Start Date Coverage End Date Medicare National Govt Sv[employer] [address] [facility] [place] [address] [id number] Starla Chrisite Self - patient is the insured Medical (General) History Medical History History ICD Code Broken bones Cancer Numbness Poor circulation Eczema thyroid Vascular phlebitis (clots) Measles Chicken pox FX Tailbone Surgical History Surgery Date(Month/Year) [place] Endo 12/14/2015
[2025-03-12 14:37] LABS: Appearance Urine Cloudy; Glucose Urine UA Negative (Negative); PH 6.5 (5.0-9.0); Specific Gravity - Urine 1.010 (1.005-1.025); UMIC TRIGGER UACC YES
[2025-03-12 14:40] LABS: UACC Culture Trigger YES
== END 2025-03-12 12:43 | disposition home or self-care (01) ==
LOC: HO.LAB 12:42
PROVIDERS: Visit Provider Physician Assistant
DX: R82.81 Pyuria (principal); R30.0 Dysuria; R35.0 Frequency of micturition
CPT/HCPCS: 81001; 87086; 88112